=== PATIENT | female | born 1985 | race African-American/Black ===

== ENCOUNTER 2017-09-29 20:36 | Emergency (ER) | payer OTHER ==
[~2017-09-29] VITALS: Ht 160 cm; Wt 86.0 kg
[2017-09-29 20:41] VITALS: BP 143/88; PULSE 91; RESP 16; TEMP 98.8; O2SAT 100
[2017-09-29] MEDS ORDERED: ALBUAER3 INH (21:26)
[2017-09-29] MEDS ORDERED: PRED20 PO (21:26)
[2017-09-29] MEDS ORDERED: BENZ100 PO (21:26)
[2017-09-29] MEDS ORDERED: RESP: ALBUTEROL 2.5 MG/IPRATROPIUM 0.5 MG NEB (SCH) INH ONE (21:30)
[2017-09-29] MEDS ORDERED: predniSONE 20 MG TAB PO ONE (21:30)
--- NOTE | 2017-09-29 21:32 | PD ---
HPI Chief Complaint: Cold / Flu Symptoms Time Seen by Provider: 21:24 Travel History International Travel<30 days: No Contact w/Intl Traveler<30days: No Traveled to known affect area: No History of Present Illness HPI 32-year-old female presents for evaluation. For 3 weeks she has had cough, congestion, slight sore throat as well as hoarse voice. She has tried over-the- counter cough and cold medications but symptoms persisted which prompted evaluation. Denies fevers, chills, rash, recent travel. No sick contacts. No significant past medical history. No other complaints at this time. [facility] [place] Past Medical History Immunizations Current: Yes Tetanus Vaccination: Unknown Influenza Vaccination: No ?: Unknown Past Surgical History Gynecologic Surgery: Yes () Social History Alcohol Use: Yes (OCC) Tobacco Use: No Substance Use: No Allergies-Medications (Allergen,Severity, Reaction): Coded Allergies: No Known Allergies (Unverified Adverse Reaction, Unknown, 09/29/17) Reported Meds & Prescriptions Reported Meds & Active Scripts Active Tessalon Perles (Benzonatate) 100 Mg Cap 200 Mg PO TID PRN Proair Hfa 8.5 GM Inh (Albuterol Sulfate) 90 Mcg/Act Aer 2 Puff INH Q4-6H PRN 108 mcg/actuation Prednisone 20 Mg Tab 20 Mg PO BID 5 Days Review of Systems Except as stated in HPI: all other systems reviewed are Neg Physical Exam Narrative GENERAL: Well-developed well-nourished female in no acute distress. SKIN: Warm and dry. HEAD: Atraumatic. Normocephalic. EYES: Pupils equal and round. No scleral icterus. No injection or drainage. ENT: No nasal bleeding or discharge. Mucous membranes pink and moist. Hoarse voice. No oral pharyngeal erythema or exudate. NECK: Trachea midline. No JVD. CARDIOVASCULAR: Regular rate and rhythm. No murmur appreciated. RESPIRATORY: No accessory muscle use. Slight end expiratory wheezing bilaterally. Data Data Last Documented VS Vital Signs Date Time Temp Pulse Resp B/P (MAP) Pulse Ox O2 Delivery O2 Flow Rate FiO2 09/29/17 20:41 98.8 91 16 143/88 (106) 100 Room Air Orders Orders Albuterol-Ipratropium Neb (Duoneb Neb) (09/29/17 21:30) Prednisone (Deltasone) (09/29/17 21:30) Ed Discharge Order (09/29/17 21:24) [facility] Medical Decision Making Medical Screen Exam Complete: Yes Emergency Medical Condition: Yes Medical Record Reviewed: Yes Differential Diagnosis Reactive airway disease, bronchitis, pneumonia, influenza, bronchitis Narrative Course 32-year-old female 3 weeks of cough and congestion and hoarse voice. Examination is consistent with bronchitis, laryngitis. She does have mild end expiratory wheezing and therefore will be treated with prednisone, bronchodilators. She is stable for discharge. Diagnosis Primary Impression: Bronchitis Additional Impression: Laryngitis Additional Instructions: Medication as prescribed. Vocal rest. Stay well hydrated well-nourished. Follow-up with primary care physician as needed and return for any emergent medical conditions. Med/Other Pt SpecificInfo: Prescription(s) given Scripts Benzonatate (Tessalon Perles) 100 Mg Cap 200 MG PO TID Y for COUGH, #30 CAP 0 Refills Prov: Alisa Washington MD 09/29/17 Albuterol 8.5 GM Inh (Proair Hfa 8.5 GM Inh) 90 Mcg/Act Aer 2 PUFF INH Q4-6H Y for SHORTNESS OF BREATH, #1 INHALER 0 Refills 108 mcg/actuation Prov: Alisa Washington MD 09/29/17 Prednisone (Prednisone) 20 Mg Tab 20 MG PO BID for 5 Days, #10 TAB 0 Refills Prov: Alisa Washington MD 09/29/17 Disposition: 01 DISCHARGE HOME Condition: Stable [place] Sep 29, 2017 21:32
== END 2017-09-29 22:15 | disposition home or self-care (01) ==
LOC: NEPD 20:36
DX: J40 Bronchitis, not specified as acute or chronic (principal); J04.0 Acute laryngitis
CPT/HCPCS: 94664; 99284; J7512